=== PATIENT | female | born 1950 | race Caucasian/White ===

== ENCOUNTER 2024-09-02 18:15 | Inpatient (IN) | payer OTHER, SELFPAY ==
[2024-09-02] VITALS (7 sets, daily range): BP systolic 144–179; BP diastolic 70–108; BMI 31.9; BMI 33.9
[2024-09-02 11:29] LABS: % Basophils 1.1 % (0-2); % Eosinophils 2.3 % (0-6); % Immature Granulocytes 0.4 % (0-0.5); % Lymphocytes 19.2 % (20.5-51.1); % Monocytes 7.5 % (1.7-9.3); % Neutrophils 69.5 % (42.2-75.2); Absolute Basophils 0.1 10^3/uL (0-0.2); Absolute Eosinophils 0.2 10^3/uL (0-0.7); Absolute Lymphocytes 1.4 10^3/uL (1.2-3.4); Absolute Monocytes 0.6 10^3/uL (0.1-0.6); Absolute Neutrophils 5.2 10^3/uL (1.4-6.5); Hematocrit 39.9 % (37.0-47.0); Hemoglobin 13.7 g/dL (12.0-16.0); Mean Corp Hgb Conc. 34.3 g/dL (33.0-37.0); Mean Corpuscular Hgb 28.8 pg (27.0-31.0); Nucleated Red Blood Cells % 0 %; Platelet Count 196 10^3/uL (130-400); Red Blood Cell Count 4.75 10^6/uL (4.20-5.40); Red Cell Dist. Width 13.8 % (11.5-14.5); White Blood Cell Count 7.4 10^3/uL (4.8-10.8)
[2024-09-02 11:52] LABS: ALT (SGPT) 19 U/L (0-35); AST (SGOT) 26 U/L (14-36); Albumin 4.6 g/dl (3.5-5.0); Alkaline Phosphatase 103 U/L (38-126); Blood Urea Nitrogen 14 mg/dl (7-17); Calcium 10.4 mg/dl (8.4-10.2); Carbon Dioxide 20 mmol/L (22-30); Chloride 108 mmol/L (98-107); Glucose 139 mg/dl (70-99); Potassium 4.1 mmol/L (3.5-5.1); Sodium 137 mmol/L (135-145); Total Bilirubin 0.6 mg/dl (0.2-1.3); Total Protein 7.1 g/dl (6.3-8.2); eGFR > 60.00
[2024-09-02 12:03] LABS: Troponin I < 0.012 ng/ml
--- NOTE | 2024-09-02 13:29 | ED.GENMED ---
History of Present Illness
General
Chief Complaint: Chest Pain
Source: patient
Exam Limitations: none
Time Seen by Provider: 09/02/24 12:34
Nursing documentation reviewed up to this point in time: agreed with
History of Present Illness
History of Present Illness:
Patient is a 74-year-old female with history of hypertension hypercholesteremia bipolar disorder presents to the ER for relation of left upper chest pain. Patient went to urgent care was given 3 baby aspirin and came to the ER.
Pain started on Tuesday and has been constant since beginning gradually worse. Today her blood pressure was elevated which prompted her to come to the ER. She denies any injury. Denies any associated shortness of breath. No cardiac history.
She does feel some pain down her arm and tingling in her left 5th and 4th fingers. At times she feels that it radiates to her left lateral neck. She denies any headache. Denies any weakness to left upper extremity. Is not made worse with
movement of her neck or movement of her arm or shoulder. She denies any rash illness fever chills cough.
Review of Systems
Review of Systems
Allergies reviewed?: Yes
All Other Systems: ROS reviewed and negative except as documented in HPI and ROS
Constitutional: Reports no symptoms; Denies fever, fatigue or chills
Respiratory: Reports no symptoms; Denies trouble breathing
Cardiac: Reports chest pain; Denies diaphoresis, palpitations or syncope
ABD/GI: Reports no symptoms
: Reports no symptoms
Musculoskeletal: Reports neck pain and other (pt feels pain radiates to left arm )
Skin: Reports no symptoms
Neurological: Reports other (tingling to left 4th /5th fingers )
Hematologic/Lymphatic: Reports no symptoms
Phy Exam
General Physical Exam
General Presentation: no apparent distress
General age: appears stated age
General Skin: warm and dry
General Habitus: normal
General Mental: alert
General Hydration: appears well hydrated
Cardiovascular Exam
Cardiovascular Exam: regular rate/rhythm, no murmur and normal peripheral pulses
Pulmonary Exam
Pulmonary Exam: lungs clear and no respiratory distress
Neurological Exam
Neurological Exam: alert and oriented x3
Musculoskeletal Exam
Musculoskeletal Exam: full ROM
Skin Exam
Skin Exam: normal color and warm/dry
Psychiatric Exam
Psychiatric Exam: normal mood/affect
Scores
Heart Score for Chest Pain Patients
STEMI patient?: Not applicable
Course
Orders/Labs/Results
Orders:
Orders
09/02/24 11:05
Electrocardiogram (*1) Urgent
Reason for Study: Chest Pain
Cardiac Monitoring- Treatment ONCE
EKG- Treatment ONCE
IV Insert/Care/Rem.- Treatment PRN
O2 Therapy [RESP] Urgent
Titrate/Wean O2 to maintain O2 sat greater than (%): 90
Special Instructions: Maintain sats >/=90%
Pulse Ox/spot Check [RESP] Urgent
Quantity: 1
Special Instructions: ON ROOM AIR
09/02/24 11:24
Complete Blood Count/With Diff Urgent
Comprehensive Metabolic Panel Urgent
Troponin I Urgent
09/02/24 14:31
DDimer [D-Dimer] Urgent
Troponin I Urgent
09/02/24 15:23
Electrocardiogram (*1) Stat
Reason for Study: Other
Other Reason for Exam: chest pain
EKG- Treatment ONCE
09/02/24 15:34
Nitroglycerin Sublingual [Nitrostat (Sublingual)] 0.4 mg SL NOW STA
09/02/24 15:45
CT Chest Angio W/wo Iv Contras Urgent
Comment:
Reason For Exam: left chest /neck/arm pain
09/02/24 17:37
Heparin 4,000 units IV NOW STA
Pharmacy Request to Place See Dose Instructions PO NOW STA
Discontinue all Active Warfarin orders?: Yes
09/02/24 17:[address] Non Medication Order As Directed
Physician Order: PTT 6 hours after initial start of Heparin infusion
09/02/24 17:45
Heparin [id number] Units/250 ml 25,000 units in 250 ml IV PER PROTOCOL
Weight to be used for heparin protocol in kilograms (kg):: 87
Protocol:: Cardiac Tx/Acute Coronary
PTT Goal Range to be used:: PTT 73 to 111 seconds
Order type:: Initial
INITIAL Infusion Dose (UNITS/KG/hr) & then follow protocol:: 12 units/kg/hr
Infusion Dose in UNITS/hr & then follow protocol (UNITS/hr):: 1,000
INFUSION RATE in mL/hr & then follow protocol (mL/hr):: 10
PTT less than or equal to 64 seconds:: Increase rate by 200 units/hr (+ 2 mL/hr)
PTT 64.1 to 72.9 seconds:: Increase rate by 100 units/hr (+ 1 mL/hr)
PTT 73 to 111 seconds:: Target Range. No change in rate.
PTT 111.1 to 130.9 seconds:: Decrease rate by 100 units/hr (- 1 mL/hr)
PTT 131 to 199.9 seconds:: HOLD for 1 hr. Then decrease rate by 200 units/hr (- 2 mL/hr)
PTT greater than or equal to 200 seconds:: HOLD for 2 hrs & Notify Provider. Then decrease by 200 units/hr (-
2 mL/hr)
Lab follow-up:: Each change, PTT q6h until 2 consecutive are therapeutic. Then PTT
daily.
09/02/24 18:[address] See Dose Instructions IV DIRECTED
Abnormal Lab Results
09/02/24 09/02/24
11:24 14:31
MPV 13.0 H fL
(7.4-10.4)
Lymphocytes % 19.2 L %
(20.5-51.1)
D-Dimer 0.59 H ug/mlFEU
(0.00-0.50)
Chloride 108 H mmol/L
(98-107)
Carbon Dioxide 20 L mmol/L
(22-30)
Glucose 139 H mg/dl
(70-99)
Calcium 10.4 H mg/dl
(8.4-10.2)
Troponin I 0.040 H* D ng/ml
09/02/24 11:24
09/02/24 11:24
Vital Signs
Initial and Last Documented VS:
Initial Vital Signs
Temp Pulse Resp BP Pulse Ox
98.6 F 96 15 179/108 96
09/02/24 11:12 09/02/24 11:12 09/02/24 11:12 09/02/24 11:12 09/02/24 11:12
Last Documented Vital Signs
Temp Pulse Resp BP Pulse Ox
98.5 F 75 15 147/86 98
09/02/24 14:32 09/02/24 14:32 09/02/24 14:32 09/02/24 15:43 09/02/24 14:33
Research Test Engine Evaluator consulted with Physician
Research Test Engine Evaluator consulted with physician?: Yes
Name of Physician Consulted: Goodread
MDM/Problems Addressed
Differential Diagnosis Includes:
Not limited to musculoskeletal pain, ACS
MDM/Problems Addressed:
As documented patient is a 72-year-old female who has had pain in her left chest arm and neck for the past several days went to urgent care was given aspirin and sent to the ER. Patient's initial cardiac troponin was negative however repeat is
elevated 0.[address] elevation. No associated shortness of breath. No cardiac history. Patient was given 1 nitroglycerin and is pain-free. Case reviewed with Dr. Mazariegos cardiology on-call.
CAT scan was done to rule out dissection which is negative. He did review the scan and since patient is pain-free he would recommend to hold off on starting heparin until next troponin. Patient is comfortable with stable vital signs we will admit
to the hospitalist
Chronic conditions affecting care:
Hypertension hyperlipidemia
*Radiology
Radiology exam reviewed: radiology read reviewed
*Pulse Oximetry
Patient hypoxic: no
*EKG
Interpreted by ED Provider?: Yes
Interpretation: abnormal
Comparison EKG: no comparison EKG present
Heart Rate: 97
Rate: normal
Rhythm: sinus
Ischemia: non-specific ST changes (Repeat EKG unchanged heart rate 76)
*Critical Care Note
Total Time (30-74mins, 75-104mins- exclusive of procedures): Not Applicable
Patient Management
Discussion with other providers: Hemodialysis Charge Nurse (Senior Mechanical Designer )
ED Attending Note
-
Portions of this chart may have been created with voice recognition software.� Occasional wrong word or��sound alike� substitutions may have occurred due to the inherent limitations of voice recognition software.
Discharge Plan
Departure
Patient Disposition: Admit
Date of Disposition: 09/02/24
Time of Disposition: 17:51
Admit to: Telemetry
Admit to doctor: hospitalist
Presentation/result/management discussed w/ accepting MD/DO: Hospitalist
Patient with high blood pressure during this ER visit?: Yes
Condition: Fair
Covid-19: Not Applicable
Discharge Problem:
Chest pain, Elevated troponin
Referrals:
Tomeka Berman CRNP [Family Provider]
Interventions
Interventions:
*Risk Screen - Suicide Last Done: 09/02/24 11:12
*General Assessment Last Done: 09/02/24 11:12
*Neglect/Abuse Screening Last Done: 09/02/24 11:12
*ED- Fall Risk Assessment Last Done: 09/02/24 14:33
*ED COVID-19 Vaccine History Last Done: 09/02/24 14:33
ED- Cardiac Assessment Last Done: 09/02/24 14:33
Discharge Date and Time
Print Language: SOLOM[place] ISLANDER
[2024-09-02 14:35] LABS: Glucose - Point of Care 91 mg/dl (70-99)
[2024-09-02 14:57] LABS: D-Dimer 0.59 ug/mlFEU (0.00-0.50)
[2024-09-02] MEDS: NITROSTAT (SUBLINGUAL) 0.4 MG SL (15:38)
--- NOTE | 2024-09-02 17:49 | HPS.HSE ---
Family Physician
-
Family Physician: NORMA Durand
Chief Complaint
-
Left sided chest pain neck/shoulder pain
History of Present Illness
HPI
74F No prior cardiac HX, HX hypertension hypercholesteremia bipolar disorder presents to the ER for relation of left upper chest pain.
- Patient went to urgent care was given 3 baby aspirin and came to the ER.
- Since Tuesday, CP has been constant and gradually worse.
- Today her blood pressure was elevated which prompted her to come to the ER.
- feel some pain down her arm and tingling in her left 5th and 4th fingers.
- radiates to her left lateral neck.
- Pain was not worse with movement of her neck or movement of her arm or shoulder.
ROS:
Denies any rash illness fever chills cough.
Denies any injury.
Denies any associated shortness of breath.
Denies any headache.
Denies any weakness to left upper extremity.
Medical History
Past Medical History
Past Medical History: Reports HTN, Hypercholesterolemia and Psychiatric (bipolar disorder )
Past Surgical History: Reports None
Social History
Tobacco: Non-smoker
Alcohol: Occasional
Drug: None
Family History
Family History: Not pertinent
Allergies / Home Medications
Allergies reflects when Allergies were last updated in [facility].
Home Medications with original date entered in [facility]
Allergy/Medication List:
Allergies
Allergy/AdvReac Type Severity Reaction Status Date / Time
metoprolol Allergy Intermediate Swelling Verified 09/02/24 11:15
If medication reconciliation has not been performed, why?: Medication List N/A
Review of Systems
-
Constitutional: Reports No Symptoms
EENT: Reports No Symptoms
Respiratory: Reports No Symptoms
Cardiac: Reports See HPI and Chest Pain
Abdomen/GI: Reports No Symptoms
: Reports No Symptoms
Musculoskeletal: Reports No Symptoms
Skin: Reports No Symptoms
Neurological: Reports No Symptoms
Endocrine: Reports No Symptoms
Hematologic/Lymphatic: Reports No Symptoms
Psych: Reports No Symptoms
Physical Exam
Vital Signs
Vital Signs
Temp Pulse Resp BP Pulse Ox
98.5 F 75 15 147/86 98
09/02/24 14:32 09/02/24 14:32 09/02/24 14:32 09/02/24 15:43 09/02/24 14:33
Physical Exam
General: Well Developed, Well Nourished, No Apparent Distress and Obese
HEENT: NormoCephalic, Moist mucous membranes and Atraumatic
Respiratory: Clear
Cardiac: S1/S2 and Regular Rhythm; No Murmur or Rub
GI: Soft, Non Tender, Non Distended and Normal Bowel Sounds; No Organomegaly
Rectal: Deferred by Provider
Musculoskeletal: No Clubbing, No Cyanosis and No Edema
Skin: No Rash
Neuro: Nonfocal/grossly intact
Laboratory Results
-
09/02/24 11:24
09/02/24 11:24
Laboratory Results
APTT Cancelled 09/02/24 17:38
Total Bilirubin 0.6 mg/dl (0.2-1.3) 09/02/24 11:24
AST 26 U/L (14-36) 09/02/24 11:24
ALT 19 U/L (0-35) 09/02/24 11:24
Alkaline Phosphatase 103 U/L (38-126) 09/02/24 11:24
Troponin I 0.040 ng/ml H* D 09/02/24 14:31
Data Reviewed
-
CT Scan: Report Reviewed by me
Medical Tests (Nuc Med, Echo, EKG etc): Report Reviewed by me
Lab Data: Labs Reviewed by me
Impression/Plan
-
Vital Signs
Temp Pulse Resp BP Pulse Ox
98.5 F 75 15 147/86 98
09/02/24 14:32 09/02/24 14:32 09/02/24 14:32 09/02/24 15:43 09/02/24 14:33
Admission Lab
09/02/24 09/02/24
11:24 14:31
WBC 7.4
Hgb 13.7
Plt Count 196
D-Dimer 0.59 H
Chloride 108 H
Carbon Dioxide 20 L
Creatinine 0.9
eGFR > 60.00
EKG
NORMAL SINUS RHYTHM
NORMAL ECG
WHEN COMPARED WITH ECG OF 02-SEP-2024 11:08,
PREMATURE ATRIAL COMPLEXES ARE NO LONGER PRESENTTroponin I < 0.012 0.040 H* D
Chest Angio W/wo Iv Contras
- No CTA evidence for a thoracic aortic dissection, aneurysm, or intramural hematoma.
- Large hiatal hernia.
- Subacute or chronic fracture of the posterior left 11th rib.
NO PRIOR HX hospitalist admission:
ASSESSMENT & PLAN
Pending Rx reconciliation
Lt sided CP: currently CP free s/p SL NTG
Elevated second TPNI
Normal EKG
No cardiac HX
NEG CTA for thoracic aortic dissection, aneurysm, or intramural hematoma.
- s/p 3 baby ASA and UCC
- received 1 SL NTG now pain free
- hold off on heparin gtt until next trop
- [facility] card consulted - If she has more pain, would then start Heparin.
Large hiatal hernia on CT. E
- PO PPI daily
HX hypertension
HX hypercholesteremia
HX bipolar disorder
Obesity
- Pending Rx reconciliation
DVT Px: LMWH
Code: Full
OBS TLM
--- NOTE | 2024-09-02 19:40 | PTCARENOTE ---
Pt arrived to rm 437-2, ambulated independently. VSS, pt oriented to room with call parker in reach. Reports heartburn, 1x pepcid ordered by MANUEL Betancur and provided to pt. Pt denies chest pain but endorses 3/10 left shoulder pain; pt denies needing
pain medicine at this time. Plan of care reviewed with pt.
[2024-09-02] MEDS: PEPCID 20 MG PO (21:41)
[2024-09-02 22:16] LABS: Troponin I 0.059 ng/ml
[2024-09-02] MEDS: HEPARIN 4000 UNITS IV (23:45)
[2024-09-02] MEDS: HEPARIN 25000 UNITS/250 ML IV (23:47)
--- NOTE | 2024-09-02 23:50 | PTCARENOTE ---
~2200: Pt's troponin level increased from 0.040 to 0.059; pt denies chest pain, only reporting mild pain in her left shoulder. EKG at this time reading NSR. MANUEL Betancur notified of troponin increase and ordered IV heparin gtt with 4000 unit bolus and
baseline PTT.
~2350: Heparin gtt now infusing at 10 mL/hr per order. Next PTT due at 0553.
--- NOTE | 2024-09-03 01:40 | PTCARENOTE ---
Pt's troponin level from 44 was 0.050, decreased from 0.059 earlier. REBAR WORKER Pipe notified, will stop drawing troponins. Next EKG due at 0330.
[2024-09-03 03:55] VITALS: BP 163/93
[2024-09-03 05:57] LABS: Hematocrit 40.2 % (37.0-47.0); Hemoglobin 13.3 g/dL (12.0-16.0); Mean Corp Hgb Conc. 33.1 g/dL (33.0-37.0); Mean Corpuscular Hgb 28.7 pg (27.0-31.0); Mean Corpuscular Volume 86.8 fL (81.0-99.0); Mean Platelet Volume 12.7 fL (7.4-10.4); Platelet Count 200 10^3/uL (130-400); Red Blood Cell Count 4.63 10^6/uL (4.20-5.40); Red Cell Dist. Width 14.3 % (11.5-14.5); White Blood Cell Count 6.4 10^3/uL (4.8-10.8)
[2024-09-03 06:00] VITALS: BMI 33.4
[2024-09-03 06:21] LABS: APTT 107.3 Sec (23.4-35.0)
[2024-09-03 07:00] VITALS: BP 164/105
[2024-09-03 07:04] LABS: Troponin I 0.031 ng/ml
[2024-09-03 07:05] LABS: ALT (SGPT) 18 U/L (0-35); AST (SGOT) 23 U/L (14-36); Albumin 4.3 g/dl (3.5-5.0); Alkaline Phosphatase 110 U/L (38-126); Blood Urea Nitrogen 12 mg/dl (7-17); Calcium 10.1 mg/dl (8.4-10.2); Carbon Dioxide 24 mmol/L (22-30); Chloride 109 mmol/L (98-107); Estimated Creatinine Clearance 55 ml/min; Glucose 115 mg/dl (70-99); Potassium 4.6 mmol/L (3.5-5.1); Sodium 140 mmol/L (135-145); Total Bilirubin 0.6 mg/dl (0.2-1.3); Total Protein 6.6 g/dl (6.3-8.2); eGFR 59.86
--- NOTE | 2024-09-03 07:25 | CON.CAR ---
Addendum entered and electronically signed by Ross Mart MD 09/03/24 12:02:
74-year-old woman with chest and neck, left shoulder and arm discomfort often at rest but worse with activity. She has been taking ibuprofen. Troponin is detectable at 0.059
PMH/PSH: Hyperlipidemia, hyperglycemia, bipolar, tubal ligation
Outpatient medications: Lisinopril 10 mg a day, omeprazole, levothyroxine and vitamin D
Current meds: Aspirin 81 mg a day, IV heparin, lisinopril 10 mg twice daily, atorvastatin 20 mg a day
Rest of history: Per Nova Moscoso her note reviewed in detail, I am in agreement unless otherwise specified
164/105, pulse 88, resp rate 20, head neck exam unremarkable, lungs are clear, regular rate and rhythm without obvious murmurs JVD okay, abdomen benign extremities without clubbing cyanosis or edema
ECG: Sinus rhythm, PVCs, nonspecific ST depression lateral leads
Hemoglobin 13.3, platelets 200, BUN/creatinine 12 and 1.0, potassium 4.6, peak troponin 0.059, LDL cholesterol 105
CT scan of the chest hiatal hernia
Impression:
As per Nova Moscoso as listed below. Reviewed in detail and agree, unless otherwise noted
Plan:
She presents with a concerning story for an acute coronary syndrome.
Will continue heparin, aspirin, lisinopril, and uptitrate atorvastatin. She is relatively bradycardic but will try adding low-dose metoprolol ER.
Proceed with catheterization tomorrow. Discussed in detail with patient who is agreeable. Risk benefits reviewed.
Original Note:
Consultation
Consultation Request
Date/Time Consultation Requested: 09/02/24 at 1934
Date/Time Consultation Performed: 09/03/24 at 0724
Requesting Provider: Dr. Zaragoza
Performing Provider: Dr. JOANN Mart
Reason for Consultation: Chest pain
Medical History
-
History of Present Illness:
Patient came to [facility] ER yesterday with chest pain and was admitted with elevated Troponin and cardiology has been consulted. Patient says that chest pain started last Tuesday and has recurred daily. Describes pain as left chest and into the
shoulder, up the neck and down her arm. Pain happens at rest and is worse with activity, but then relieved with rest. She reports an episode last week where pain became much worse while walking in the grocery store and then better with rest. Patient
also taking ibuprofen 1-2 times a day to help with pain, but minimal relief. Patient says she also gets HAs and takes ibuprofen for those as well. Patient also noted that her BP was elevated on home monitoring, 180s/70s and this worried her as well.
She takes lisinopril 10 mg daily and reports compliance. Patient reports pain more intense in the last 3 days and pain lasting for hours at a time so she came to the ER. Initial Troponin undetectable and then peaked at 0.059 and now trending down.
Pain free since admission.
PMH:
HTN
Hyperlipidemia
Hyperglycemia
patient reports h/o hypoglycemia and syncope
Bipolar disorder
Past Medical History
Past Medical History: Other (in HPI)
Past Surgical History: Gynecological (tubaligation)
Social History
Tobacco: Former Smoker (smoked age 17 to 59)
Alcohol: Occasional (1-2 times a month)
Drug: None (denies)
Personal:
Living: Alone
Family History
Family History: CAD (reports her mother had an TN in her early 50s, she has 2 brother she does not talk to and does not know if they've had CAD) and Hypertension
Allergies / Home Medications
Allergy/AdvReac Type Severity Reaction Status Date / Time
metoprolol Allergy Intermediate Swelling Verified 09/02/24 11:15
�Medication �Instructions �Recorded �Confirmed �Type
ergocalciferol (vitamin D2) 1,250 1.25 mcg PO WEEKLY Supplement 09/02/24 09/02/24 History
mcg (50,000 unit) capsule (Vitamin
D2)
levothyroxine 112 mcg tablet 112 mcg PO DAILY Thyroid 09/02/24 09/02/24 History
lisinopril 10 mg tablet 10 mg PO DAILY Blood Pressure 09/02/24 09/02/24 History
omeprazole 20 mg capsule,delayed 20 mg PO DAILY GERD 09/02/24 09/02/24 History
release
Also taking atorvastatin 20 mg daily
Review of Systems
-
History Source: Patient
All other systems: Negative unless noted
Physical Exam
Vital Signs
Temp Pulse Resp BP Pulse Ox
98.3 F 76 12 163/93 97
09/03/24 03:55 09/03/24 03:55 09/03/24 03:55 09/03/24 03:55 09/03/24 03:55
GEN: NAD. AAOx3
HEENT: EOMI, MMM, wearing glasses
LUNGS: RA. CTA B/L, no wheeze
CV: SR on tele. Reg, S1/S2, no murmur
ABD: ND
EXT: No edema B/L LE
NEURO: Gross non-focal
SKIN: No rash
Lab Results
09/03/24 05:51
09/03/24 05:51
Troponin I Cancelled 09/03/24 16:00
Impression / Plan
-
PCP: Tomeka Berman HOSPICE CLINICAL SUPERVISOR at [facility]
Card: None
Impression:
Admitted with chest pain and elevated Troponin 09/02/24
Chest pain
Elevated Troponin
Abnormal ECG
HTN
Hyperlipidemia
Hyperglycemia
patient reports h/o hypoglycemia and syncope
Bipolar disorder
Echo 09/03/24: Study pending
Plan:
-Patient came to [facility] ER yesterday with chest pain and was admitted with elevated Troponin and cardiology has been consulted. Patient says that chest pain started last Tuesday and has recurred daily. Describes pain as left chest and into the
shoulder, up the neck and down her arm. Pain happens at rest and is worse with activity, but then relieved with rest. She reports an episode last week where pain became much worse while walking in the grocery store and then better with rest. Patient
also taking ibuprofen 1-2 times a day to help with pain, but minimal relief. Patient says she also gets HAs and takes ibuprofen for those as well. Patient also noted that her BP was elevated on home monitoring, 180s/70s and this worried her as well.
She takes lisinopril 10 mg daily and reports compliance. Patient reports pain more intense in the last 3 days and pain lasting for hours at a time so she came to the ER. Initial Troponin undetectable and then peaked at 0.059 and now trending down.
Pain free since admission.
-ECG reviewed by me is SR with nonspecific ST changes
-Initial Troponin undetectable and then 0.04, then peaked at 0.059 and then trending down.
-Patient has been pain free since started admission. Heparin gtt started following initial Troponin elevation.
-Check echo, ordered by me.
-Talked with patient about possibility of ACS vs HTN emergency. We made a plan to check echo to look for WMA. We talked about possible cardiac cath pending results of echo.
-Cont Heparin gtt for now, but if echo unremarkable then consider stopping Heparin gtt
-Cont aspirin 81 mg daily until patient completes cath or has an outpatient stress test
-Check CVE, ordered by me.
-Outpatient med list reviewed by me and reconciled as noted above, patient also takes atorvastatin 20 mg daily which was ordered by me
-Outpatient dose of lisinopril 10 mg daily increased to 10 mg BID, orders placed by me
-Symptoms might also be from HTN emergency. Await echo as noted.
-Patient is hyperglycemic on labs thus far, but reports a h/o hypoglycemia and syncope. Check HgbA1c
[2024-09-03] MEDS: LOW STRENGTH ASPIRIN 81 MG PO (08:04)
[2024-09-03] MEDS: ZESTRIL 10 MG PO ×2 (09:31→19:49)
[2024-09-03 09:37] LABS: HDL Cholesterol 67 mg/dl; LDL Cholesterol, Calculated 105 mg/dl; Total Cholesterol 195 mg/dl (50-199); Triglyceride 116 mg/dl (10-149); Very Low Density Lipoprotein 23 mg/dl (0-30)
[2024-09-03 10:34] LABS: Glycohemoglobin (HgbA1c) 5.9 % (4.0-5.6)
[2024-09-03 11:00] VITALS: BP 177/98
--- NOTE | 2024-09-03 13:02 | W.PN.HOSP.TC ---
Today's Communication/Plan
-
Cath tomorrow
ECHO results pending.
Continue heparin gtt
Assessment / Plan
Assessment / Plan
Left-sided chest pain and shoulder pain .
CTA-no evidence of thoracic aortic dissection aneurysm or intramural hematoma. Large hiatal hernia. Subacute or chronic fracture of the posterior 11th rib
Cardiovascular system S1-S2 appreciated
Chest clear to auscultation
Abdomen soft nontender
No pedal edema
# Chest pain and shoulder pain
On heparin drip to treat anginal symptoms
Has been present since Tuesday-yet troponin is only borderline
Continue aspirin, as needed nitroglycerin
Cardiology consulted
Patient is for cardiac cath tomorrow
# Hiatal hernia-continue PPI
# Hypertension-continue lisinopril
# Hypothyroidism-continue levothyroxine
# Obesity with a BMI of 33
# Ex Smoker
# DVT prophylaxis-Lovenox
# Full code
Discussed with nursing
Part of this note was created using voice recognition system. Occasional wrong word or��sound alike� substitutions may have inadvertently occurred due to the inherent limitations of voice recognition software. If noted kindly bring it to my
attention for correction.
Anticipated Discharge: Within 24 hours
Subjective/Interval History
-
Date of Service: September 03, 2024
Objective Data
-
Labs:
Laboratory Results
09/03/24 09/03/24
05:51 12:52
WBC 6.4
Hgb 13.3
Hct 40.2
Plt Count 200
APTT 107.3 H Pending
Sodium 140
Potassium 4.6
Chloride 109 H
Carbon Dioxide 24
BUN 12
Creatinine 1.0
Glucose 115 H
Calcium 10.1
Total Bilirubin 0.6
AST 23
ALT 18
Alkaline Phosphatase 110
Vital Signs:
Vital Signs
Temp Pulse Resp BP Pulse Ox
98.0 F 80 18 177/98 96
09/03/24 11:00 09/03/24 11:00 09/03/24 11:00 09/03/24 11:00 09/03/24 11:00
I&O
09/02/24 09/03/24 09/04/24
06:59 06:59 06:59
Intake Total 0 / 0
Balance 0 / 0
[2024-09-03 13:18] LABS: APTT 62.1 Sec (23.4-35.0)
[2024-09-03 15:26] VITALS: BP 144/79
[2024-09-03] MEDS: LIPITOR 20 MG PO (17:02)
--- NOTE | 2024-09-03 17:11 | CM ---
manager project reviewed patient's chart and met with patient and patient lives alone in a 1st floor apartment, is independent with adl's and ambulation, 3 steps to enter apartment, home no needs when stable.
PCP: Tomeka Berman
Pharmacy: [facility]
[2024-09-03 19:11] VITALS: BP 171/92
[2024-09-03 20:00] LABS: APTT 84.8 Sec (23.4-35.0)
[2024-09-03] MEDS: HEPARIN 25000 UNITS/250 ML IV (22:16)
[2024-09-03 22:59] VITALS: BP 135/77
[2024-09-04] VITALS (13 sets, daily range): BP systolic 127–171; BP diastolic 68–83; BMI 33.2
[2024-09-04 02:46] LABS: APTT 101.7 Sec (23.4-35.0)
[2024-09-04 07:31] LABS: Hematocrit 38.9 % (37.0-47.0); Mean Corp Hgb Conc. 33.4 g/dL (33.0-37.0); Mean Corpuscular Hgb 28.6 pg (27.0-31.0); Mean Corpuscular Volume 85.7 fL (81.0-99.0); Mean Platelet Volume 13.3 fL (7.4-10.4); Platelet Count 188 10^3/uL (130-400); Red Blood Cell Count 4.54 10^6/uL (4.20-5.40); Red Cell Dist. Width 14.2 % (11.5-14.5); White Blood Cell Count 5.9 10^3/uL (4.8-10.8)
[2024-09-04 07:37] LABS: Blood Urea Nitrogen 14 mg/dl (7-17); Calcium 10.1 mg/dl (8.4-10.2); Carbon Dioxide 22 mmol/L (22-30); Chloride 109 mmol/L (98-107); Estimated Creatinine Clearance 61 ml/min; Glucose 107 mg/dl (70-99); Magnesium 1.9 mg/dl (1.6-2.3); Potassium 4.8 mmol/L (3.5-5.1); Sodium 139 mmol/L (135-145); eGFR > 60.00
[2024-09-04] MEDS: ZESTRIL 10 MG PO ×2 (07:54→20:03)
[2024-09-04] MEDS: LOW STRENGTH ASPIRIN 81 MG PO (07:54)
--- NOTE | 2024-09-04 09:34 | TRANSFER ---
Pt arrived to Cardiac garage laborer from transport team. Pt awake, alert, oriented. Heparin Drip off since 0850. Pt stated she felt like her blood suger might be low since she has not eaten. Accucheck done. Result was 101. IV in left wrist flushes well.
NS @KVO was connected. Radial and bilat DP pulses +2. No complaints of pain or discomfort at this time.
[2024-09-04 09:36] LABS: Glucose - Point of Care 101 mg/dl (70-99)
--- NOTE | 2024-09-04 11:08 | ITS.CL.CATH ---
Traveling Clerk - Catheterization
Cardiac Catheterization
Procedure Report:
LEFT HEART CATHETERIZATION
Date of Procedure: September 04, 2024
Referring: Dr. Ross Mart
PROCEDURES:
1. Left heart catheterization with coronary and single-plane left ventriculography
INDICATION: Left arm discomfort and symptoms concerning for unstable angina. Troponin peaked at 0.059 ng/mL
ACCESS: Right radial artery, 6 Nigerien sheath using ultrasound guidance. The diagnostic JR4 catheter would not cross from the subclavian to the ascending aorta using a table J-wire or baby J hydrophilic wire. Angiography suggested possible
innominate/subclavian stenosis and access was changed to the right common femoral artery. Ultrasound guidance was utilized and a 6 Nigerien sheath was inserted.
HEMODYNAMICS : (mmHg)
AO (s/d) : 108/57, 78
LV (s/d) : 106/11
LVEDP : 15
CORONARY FINDINGS
DOMINANCE: Right
LEFT MAIN: [ ]
LEFT ANTERIOR DESCENDING: The LAD arises normally from the left main and runs in the anterior interventricular groove. A moderate caliber diagonal branch arises from the proximal third of the LAD. The LAD has only minor irregularities over its
course but no focal obstructive stenosis. The distal vessel wraps around the apex supplying a portion of the inferior wall. The only sizable diagonal branch parallels the LAD is a medium caliber vessel and appears widely patent.
CIRCUMFLEX: The circumflex is quite tortuous as it originates from the left main and supplies a single large obtuse marginal branch which is widely patent
RIGHT CORONARY ARTERY: The right coronary artery is a moderate to large caliber dominant vessel with minor irregularities over its course. The PDA is small but patent
VENTRICULOGRAPHY: Left ventriculography is performed in an RUGGIERO projection. The digital single-plane left ventricular ejection fraction is estimated 65% and no regional wall motion abnormalities are noted
SEDATION: 35 minutes of procedural sedation was utilized. An independent medical stenographer was present to assist with and help manage the patient's level of consciousness and physiologic status.
RADIATION SUMMARY: Fluoro Time (min): 5, Dose (mGy): 349.4, DAP (Gy.cm2) : 30.1
Closure Device: 6 Nigerien Angio-Seal, RFA and TR band for the right radial artery
CONCLUSIONS
1. Nonobstructive coronary disease
2. Preserved LV systolic function
3. Possible occlusion or severe tortuosity of innominate or right subclavian artery. Consider ultrasound assessment
RECOMMENDATIONS
1. Will obtain vascular ultrasound to assess for patency of the innominate/right subclavian given inability to pass catheters from the right subclavian to the ascending aorta. Presence of vascular disease may change choices of medical therapy
moving forward
Copy to: Dr. Ross Mart
--- NOTE | 2024-09-04 11:35 | W.PN.HOSP.TC ---
Addendum entered and electronically signed by Tomas Zaragoza MD 09/05/24 11:25:
Non ischemic myocardial injury
Addendum entered and electronically signed by Tomas Zaragoza MD 09/04/24 13:16:
Patient is for ultrasound
She did not give permission to talk to her family
Original Note:
Today's Communication/Plan
-
Bedrest for 3 hours after cath
Follow and watch the sites which were accessed today.
Await cath report and cardiology plans.
Assessment / Plan
Assessment / Plan
Left-sided chest pain and shoulder pain .
CTA-no evidence of thoracic aortic dissection aneurysm or intramural hematoma. Large hiatal hernia. Subacute or chronic fracture of the posterior 11th rib
Cardiovascular system S1-S2 appreciated
Chest clear to auscultation
Abdomen soft nontender
No pedal edema
Left wrist and left femoral access sites stable with no bleeding
# Chest pain and shoulder pain
Has been present since Tuesday-yet troponin is only borderline
Continue aspirin, as needed nitroglycerin
Status post cardiac cath-reportedly no obstructive coronary disease.Cath report is pending
Cardiology consulted
# Hiatal hernia-continue PPI
# Hypertension-continue lisinopril
# Hypothyroidism-continue levothyroxine
# Obesity with a BMI of 33
# Ex Smoker
# DVT prophylaxis-Lovenox
# Full code
Discussed with nursing
Part of this note was created using voice recognition system. Occasional wrong word or��sound alike� substitutions may have inadvertently occurred due to the inherent limitations of voice recognition software. If noted kindly bring it to my
attention for correction.
Anticipated Discharge: 24 - 48 hours
Subjective/Interval History
-
Date of Service: September 04, 2024
Objective Data
-
Labs:
Laboratory Results
09/04/24 09/04/24
02:29 06:10
WBC 5.9
Hgb 13.0
Hct 38.9
Plt Count 188
APTT 101.7 H
Sodium 139
Potassium 4.8
Chloride 109 H
Carbon Dioxide 22
BUN 14
Creatinine 0.9
Glucose 107 H
Calcium 10.1
Vital Signs:
Vital Signs
Temp Pulse Resp BP Pulse Ox
97.3 F 62 18 138/73 96
09/04/24 11:30 09/04/24 11:30 09/04/24 11:30 09/04/24 11:30 09/04/24 11:30
I&O
09/03/24 09/04/24 09/05/24
06:59 06:59 06:59
Intake Total 480 / 480 600 / 600 480 / 480
Balance 480 / 480 600 / 600 480 / 480
[2024-09-04] MEDS: NSS 1000 IV (11:45)
--- NOTE | 2024-09-04 12:51 | PTCARENOTE ---
Pt stated having some cramping in RT groin area where puncture site is. Site remains D+I and groin is soft. (+) femoral pulse.
[2024-09-04] MEDS: SYNTHROID PO (13:47)
--- NOTE | 2024-09-04 15:58 | CM ---
manager membership reviewed patient's chart and will follow for discharge planning needs.
Plan; To follow with patient for discharge needs.
[2024-09-04] MEDS: LIPITOR 20 MG PO (17:14)
[2024-09-04] MEDS: LOVENOX 40 MG SC (17:15)
[2024-09-04] MEDS: TYLENOL 650 MG PO (20:03)
[2024-09-05 03:00] VITALS: BP 143/73
[2024-09-05 06:00] VITALS: BMI 33.0
[2024-09-05] MEDS: SYNTHROID 112 MCG PO (06:16)
[2024-09-05 07:18] LABS: APTT 32.4 Sec (23.4-35.0)
[2024-09-05 07:26] LABS: Hematocrit 43.2 % (37.0-47.0); Hemoglobin 14.1 g/dL (12.0-16.0); Mean Corp Hgb Conc. 32.6 g/dL (33.0-37.0); Mean Corpuscular Hgb 28.6 pg (27.0-31.0); Mean Corpuscular Volume 87.6 fL (81.0-99.0); Mean Platelet Volume 13.4 fL (7.4-10.4); Platelet Count 222 10^3/uL (130-400); Red Blood Cell Count 4.93 10^6/uL (4.20-5.40); Red Cell Dist. Width 14.3 % (11.5-14.5); White Blood Cell Count 8.1 10^3/uL (4.8-10.8)
[2024-09-05] MEDS: ZESTRIL 10 MG PO (07:38)
[2024-09-05] MEDS: LOW STRENGTH ASPIRIN 81 MG PO (07:38)
[2024-09-05 07:44] VITALS: BP 139/72
[2024-09-05 07:54] LABS: Blood Urea Nitrogen 12 mg/dl (7-17); Calcium 10.6 mg/dl (8.4-10.2); Carbon Dioxide 26 mmol/L (22-30); Chloride 105 mmol/L (98-107); Estimated Creatinine Clearance 54 ml/min; Glucose 135 mg/dl (70-99); Potassium 4.6 mmol/L (3.5-5.1); Sodium 140 mmol/L (135-145); eGFR 59.86
--- NOTE | 2024-09-05 09:39 | PN.CDI ---
CDI
- -
CDI:
Physician Documentation Request
Admit Date: 09/02/24 18:15
Dear Doctor Nik,
Patient admitted for chest pain.
09/04 Hospitalist PN: 'Chest pain and shoulder pain. Has been present since Tuesday-yet troponin is only borderline...Status post cardiac cath-reportedly no obstructive coronary disease.'
Laboratory Tests
09/02/24 09/02/24 09/03/24
14:31 21:36 00:48
Troponin I 0.040 H* D 0.059 H* D 0.050 H*
Please clarify the following regarding the documented troponin elevation:
Nonischemic Myocardial Injury
Lab abnormality
Other
Use of terms such as suspected, likely, concern for, or probable (associated with a specific diagnosis that is being evaluated, monitored, or treated as if it exists) are acceptable and can be coded in the inpatient setting, when documented at the
time of discharge.
Thank you,
Patricia Gonzalez RN, BSN
CDI Specialist
Available via [place] text
Please use your independent medical judgment in providing your response.
[2024-09-05 11:02] VITALS: BP 130/67
[2024-09-05] MEDS: PROTONIX 40 MG PO (13:33)
--- NOTE | 2024-09-05 13:42 | W.PN.CARDCBS ---
Addendum entered and electronically signed by Dariusz Condon DO 09/05/24 14:37:
I saw and examined the patient.
The Jigger Artisan's note was reviewed and I agree with the note.
Comment:
Plan:
Vascular u/s stable
Cath reviewed with pt, no significant obstructive CAD
Cont ASA
Cont Lipitor
HR and bp controlled.
She declined outpt cardiac follow up
Discussed with primary service.
Original Note:
Today's Communication / Plan
-
Continue higher dose lisinopril 20 mg daily or 10 mg twice daily, whichever dosing regimen she prefers
Continue aspirin 81 mg daily
Continue atorvastatin 20 mg daily
Stable for discharge from a cardiac standpoint and she does not wish to follow-up with cardiology as an outpatient.
Patient is 24 hours post sedation from her cath and is medically cleared to drive home, but I also reminded the patient that she needed to be sure that she assessed her own ability to safely operate a motor vehicle before driving.
Impression / Plan
-
PCP: Tomeka Berman NP at [facility]
Card: None
Impression:
Admitted with chest pain and elevated Troponin 09/02/24
Chest pain
Elevated Troponin
HTN emergency
Nonobstructive CAD by cardiac cath 09/04/2024
Abnormal ECG
HTN
Hyperlipidemia
Hyperglycemia
patient reports h/o hypoglycemia and syncope
Bipolar disorder
No evidence of subclavian stenosis by B/L UE U/S6 1125
Echo 09/03/24: EF 55 to 60%, trace MR, aortic sclerosis without stenosis, trace aortic regurgitation
Plan:
-Patient with chest pain, abnormal ECG and elevated troponin on admission. Troponin peaked at 0.059. Patient with nonobstructive CAD by cardiac cath 09/04/2024 and troponin elevation will be managed as HTN emergency.
-Patient with known HTN and was taking lisinopril 10 mg daily prior to admission, but reported she had had higher BP in the past and used to be on a higher dose. We increased lisinopril to 10 mg twice daily, she could also take 20 mg once a day for
ease of dosing. Overall BP better controlled
-Echo reviewed and summarized above by me, overall EF preserved without WMA
-Outpatient dose of atorvastatin 20 mg daily was continued throughout admission
-Patient is new to aspirin 81 mg daily
-HgbA1c is 5.9% consistent with prediabetes
-Patient is stable for discharge to home from a cardiac standpoint on 09/05/2024. Patient would like to drive herself home as she drove herself to the hospital and her car is in the parking lot. Patient is 24 hours post sedation from her cath and
is medically cleared to drive home, but I also reminded the patient that she needed to be sure that she assessed her own ability to safely operate a motor vehicle before driving.
- Patient is not interested in following up with cardiology and would like to follow-up with her PCP, she was asked to make an appointment to be seen in the next 1 to 2 weeks and we will send records to PCP.
HPI: Patient came to [facility] ER yesterday with chest pain and was admitted with elevated Troponin and cardiology has been consulted. Patient says that chest pain started last Tuesday and has recurred daily. Describes pain as left chest and into the
shoulder, up the neck and down her arm. Pain happens at rest and is worse with activity, but then relieved with rest. She reports an episode last week where pain became much worse while walking in the grocery store and then better with rest. Patient
also taking ibuprofen 1-2 times a day to help with pain, but minimal relief. Patient says she also gets HAs and takes ibuprofen for those as well. Patient also noted that her BP was elevated on home monitoring, 180s/70s and this worried her as well.
She takes lisinopril 10 mg daily and reports compliance. Patient reports pain more intense in the last 3 days and pain lasting for hours at a time so she came to the ER. Initial Troponin undetectable and then peaked at 0.059 and now trending down.
Pain free since admission.
Progress Note - Turret Lathe Set Up Operator
Subjective
Date of Service: September 05, 2024
Feels well and wants to go home
Objective
Labs:
09/05/24 06:21
09/05/24 06:21
Labs
Hgb 14.1 g/dL (12.0-16.0) 09/05/24 06:21
Hct 43.2 % (37.0-47.0) 09/05/24 06:21
Plt Count 222 10^3/uL (130-400) 09/05/24 06:21
APTT 32.4 Sec (23.4-35.0) 09/05/24 06:21
Sodium 140 mmol/L (135-145) 09/05/24 06:21
Potassium 4.6 mmol/L (3.5-5.1) 09/05/24 06:21
BUN 12 mg/dl (7-17) 09/05/24 06:21
Creatinine 1.0 mg/dL (0.6-1.0) 09/05/24 06:21
Glucose 135 mg/dl (70-99) H 09/05/24 06:21
Troponins
09/02/24 09/02/24 09/02/24
14:31 21:36 22:34
Troponin I 0.040 H* D 0.059 H* D Cancelled
09/03/24 09/03/24 09/03/24
00:48 04:00 05:51
Troponin I 0.050 H* Cancelled 0.031 D
09/03/24 09/03/24
10:00 16:00
Troponin I Cancelled Cancelled
Vital Signs and I&O:
Vital Signs
Temp Pulse Resp BP Pulse Ox
98.1 F 78 16 130/67 96
09/05/24 11:02 09/05/24 11:02 09/05/24 11:02 09/05/24 11:02 09/05/24 11:02
Vital Signs
Temp Pulse Resp BP Pulse Ox
98.1 F 78 16 130/67 96
09/05/24 11:02 09/05/24 11:02 09/05/24 11:02 09/05/24 11:02 09/05/24 11:02
Intake & Output
09/03/24 09/04/24 09/05/24 09/06/24
06:59 06:59 06:59 06:59
Intake Total 480 / 480 600 / 600 960 / 960
Balance 480 / 480 600 / 600 960 / 960
Physical Exam
Physical Exam
GEN: NAD. AAOx3
LUNGS: RA.
CV: SR on tele.
EXT: No edema B/L LE
NEURO: Gross non-focal
SKIN: No rash
--- NOTE | 2024-09-05 13:58 | W.PN.HOSP.TC ---
Today's Communication/Plan
-
Discharge
Assessment / Plan
Assessment / Plan
Left-sided chest pain and shoulder pain .
CTA-no evidence of thoracic aortic dissection aneurysm or intramural hematoma. Large hiatal hernia. Subacute or chronic fracture of the posterior 11th rib.
Cardiovascular system S1-S2 appreciated
Chest clear to auscultation
Abdomen soft nontender
No pedal edema
Left wrist and left femoral access sites stable with no bleeding
# Chest pain and shoulder pain
Has been present since Tuesday-yet troponin is only borderline
Continue aspirin, as needed nitroglycerin
Status post cardiac cath-09/04/24-nonobstructive coronary artery disease. Possible or severe tortuosity of the innominate right subclavian artery
Cardiology following.
# Verbal report ultrasound of subclavian unremarkable
# Hiatal hernia-continue PPI
# Hypertension-continue lisinopril
# Hypothyroidism-continue levothyroxine
# Obesity with a BMI of 33
# Ex Smoker
# DVT prophylaxis-Lovenox
# Full code
Discussed with nursing
Discussed with cardiology-verbal report ultrasound is okay. Cardiology okay with discharging the patient
I asked if I can talk to her family. Patient declined and stated that she does not want me to talk to anybody in the family.
More than 30 minutes spent in discharge including
Final examination of the patient
Summarizing hospital stay
Instructions for continuing care to all relevant caregivers
Preparation of discharge records, prescriptions, and referral forms
Total time spent (in minutes): 33 min
Part of this note was created using voice recognition system. Occasional wrong word or��sound alike� substitutions may have inadvertently occurred due to the inherent limitations of voice recognition software. If noted kindly bring it to my
attention for correction.
Anticipated Discharge: Today
Subjective/Interval History
-
Date of Service: September 05, 2024
Objective Data
-
Labs:
Laboratory Results
09/05/24
06:21
WBC 8.1
Hgb 14.1
Hct 43.2
Plt Count 222
APTT 32.4
Sodium 140
Potassium 4.6
Chloride 105
Carbon Dioxide 26
BUN 12
Creatinine 1.0
Glucose 135 H
Calcium 10.6 H
Vital Signs:
Vital Signs
Temp Pulse Resp BP Pulse Ox
98.1 F 78 16 130/67 96
09/05/24 11:02 09/05/24 11:02 09/05/24 11:02 09/05/24 11:02 09/05/24 11:02
I&O
09/04/24 09/05/24 09/06/24
06:59 06:59 06:59
Intake Total 600 / 600 960 / 960
Balance 600 / 600 960 / 960
--- NOTE | 2024-09-05 14:02 | W.DS.TRANS ---
Addendum entered and electronically signed by Tomas Zaragoza MD 09/05/24 14:05:
Dictation- [id number]
Original Note:
DC Summary - Absorption Operator
-
Discharge Instructions:
Discharge Diagnosis/Procedures Cardiac cath for chest pain
Hiatal hernia
Hypertension
Hypothyroidism
Diet 2 Gram Sodium
Activity As tolerated
Driving Restrictions No driving for 24 hours
Instructions:
Stand-Alone Forms: DC Instructions- Cath/EP Lab
Changes to Home Medications: Yes
Discharge Medications:
DC Medications w/original date entered in [employer]
ergocalciferol (vitamin D2) 1,250 mcg (50,000 unit) capsule (Vitamin D2) 1.25 mcg PO WEEKLY Supplement 09/02/24
levothyroxine 112 mcg tablet 112 mcg PO DAILY Thyroid 09/02/24
omeprazole 20 mg capsule,delayed release 20 mg PO DAILY GERD 09/02/24
aspirin 81 mg chewable tablet 81 mg PO DAILY Blood clot prevention/tx #30 tabs 09/04/24
atorvastatin 20 mg tablet 20 mg PO QPM High cholesterol #30 tabs 09/04/24
lisinopril 10 mg tablet 10 mg PO BID Blood Pressure #60 tabs 09/04/24
Home Medication Changes
new
ASA, Statin
Pending Results: No
[2024-09-05 14:30] VITALS: BP 142/84
--- NOTE | 2024-09-05 16:33 | PTCARENOTE ---
Pt discharged to home, TT to Dr. Zaragoza that said pt could drive herself home. Paperwork reviewed, iv removed, tele removed, all belongings with pt.
== END 2024-09-05 16:15 | disposition home or self-care (01) | DRG 287 ==
LOC: 4 WEST ACU 18:15
PROVIDERS: Internal Medicine Interventional Cardiology; Nurse Practitioner; Nurse Practitioner Adult Health; Registered Nurse; ADMITTING PHYSICIAN Internal Medicine; ATTENDING PHYSICIAN Hospitalist; EMERGENCY PHYSICIAN Emergency Medicine; FAMILY PHYSICIAN Family Medicine; OTHER PHYSICIAN Internal Medicine Cardiovascular Disease
PROC: 4A023N7 Measurement of Cardiac Sampling and Pressure, Left Heart, Percutaneous Approach (ICD-10-PCS; 2024-09-04)
PROC: B2151ZZ Fluoroscopy of Left Heart using Low Osmolar Contrast (ICD-10-PCS; 2024-09-04)
PROC: B2111ZZ Fluoroscopy of Multiple Coronary Arteries using Low Osmolar Contrast (ICD-10-PCS; 2024-09-04)
DX: I16.1 Hypertensive emergency (principal); I5A Non-ischemic myocardial injury (non-traumatic); E78.00 Pure hypercholesterolemia, unspecified; F31.9 Bipolar disorder, unspecified; I10 Essential (primary) hypertension; R73.9 Hyperglycemia, unspecified; R20.2 Paresthesia of skin; K44.9 Diaphragmatic hernia without obstruction or gangrene; E03.9 Hypothyroidism, unspecified; I25.10 Atherosclerotic heart disease of native coronary artery without angina pectoris; E66.9 Obesity, unspecified; Z60.2 Problems related to living alone; Z68.33 Body mass index [BMI] 33.0-33.9, adult; Z88.8 Allergy status to other drugs, medicaments and biological substances; Z87.891 Personal history of nicotine dependence; Z82.49 Family history of ischemic heart disease and other diseases of the circulatory system; Z79.890 Hormone replacement therapy
CPT/HCPCS: 71275; 80048; 80053; 80061; 82962; 83036; 83735; 84484; 85025; 85027; 85379; 85730; 93005; 93306; 93458; 93930; 99152; 99153; 99285; C1760; C1769; C1894; Q9967